=== PATIENT | male | born 1960 | race Caucasian/White ===

== ENCOUNTER 2016-05-20 17:51 | Inpatient (IN) | payer BC, OTHER ==
[~2016-05-20] VITALS: Ht 182.9 cm; Wt 83.9 kg
--- NOTE | ~2016-05-20 | D ---
[facility] [place] [address] DISCHARGE SUMMARY Name: CAMELIA BATES Room #: 454-P [facility] IN M.R.#: [id number] Admission: 05/20/16 Attend Phys: Marietta Marshall MD Discharge: 05/21/16 Date of : 58 Report #: [id number] THIS REPORT FOR: //name// CC: Marietta Adler DATE OF SERVICE: 05/21/2016 TYPE OF DICTATION: Discharge summary. After slqr-gp-leau encounter, I did see the patient and examined him on the day of discharge. DISCHARGE DIAGNOSES: 1. Atypical chest pain. 2. Dizziness. 3. Ascending aortic aneurysm major 4.1. 4. Persistent cough. 5. Hypertension. 6. Hyperlipidemia. 7. Borderline diabetes mellitus. 8. Tobacco abuse. DISCHARGE MEDICATIONS: See discharge summary. HOSPITAL COURSE: The patient was admitted to the hospital secondary to atypical chest pain and dizziness. The patient presented to have syncope actually. The patient was admitted to CCU and he was on the tele. Tele was negative. Serial troponin was negative. The patient's fasting lipid profile did show LDL of 112, so advised to take 10 mg of Crestor. His echocardiogram was negative and carotid ultrasound was negative. CT head was negative. CT angio of the chest was negative for PE. The patient was seen by cardiology also and they recommended him to be seen as an outpatient in 2-4 weeks and do a stress test as an outpatient with Dr. Dorsey. The patient is stable and he is going home to follow with his primary care doctor for any other medical issues. <ELECTRONICALLY SIGNED> By: Marietta Marshall MD 05/21/16 1828 1424 1748 Marietta Marshall MD /nt
--- NOTE | ~2016-05-20 | EKG ---
[address] [address] ELECTROCARDIOGRAM REPORT Name: JANACAMELIA Room #: 454-P ADM IN M.R.#: [id number] Admission: 05/20/16 Attend Phys: Marietta Marshall MD Discharge: Date of : 58 Report #: [id number] THIS REPORT FOR: //name// [facility] ED Test Date: 2016-05-20 Test Time: 17:52:45 Pat Name: CAMELIA ABTES Department: Room: [facility] Gender: M [employer] Calculator: TITO : 1960 Requested By: William aSha Order Number: [id number] MD: Da Williamson Measurements Intervals [place] Rate: 71 P: 58 [place]: 221 QRS: 28 QRSD: 94 T: 79 QT: 373 QTc: 406 Interpretive Statements Sinus rhythm Prolonged [place] interval No previous ECG available for comparison Electronically Signed On 05-21-2016 9:29:01 SPEECH LANGUAGE PATHOLOGIST by Da Williamson [email or web address] <ELECTRONICALLY SIGNED> By: Da Williamson MD, [facility] 05/21/16 0929 1752 1752 Da Williamson MD, FACC /EPI
--- NOTE | ~2016-05-20 | 2DMMODE ---
[facility] [place] [address] 2 D/M-MODE ECHOCARDIOGRAM Name: CAMELIA BATES Room #: 454-P [facility] IN .R.#: [id number] Admission: 05/20/16 Attend Phys: Marietta Marshall, Discharge: Date of : 58 Date of Service: 05/21/16 0913 Report #: [id number] THIS REPORT FOR: //name// Transthoracic Echocardiography Ordering physician: Laquita Troncoso Referring physician: Ashish Adler Theresa L. Food Service Team Member: Marie Salazar Indications/History: Chest pain, Dizzy. Hx: HTN, Tobacco abuse. BP: 134 / HR: 63bpm Height: 72in Weight: 185.6lb 54 Study data: M-mode, complete 2D, complete spectral Doppler, and color Doppler. Location: Echo laboratory. Routine. Image quality was adequate. 2D measurements Normal Normal LVID ED 56.6mm 36-57 IVS ED 10.6mm 6-11 LVID ES 36.9mm 23-40 LVPW ED 9.9mm 6-11 LA volume 30ml/m2 16-28 AoRoot diam 43.1mm 21-37 index ED LVOT diameter 22mm 18-23 Findings: Left ventricle: The cavity size was normal. Wall thickness was normal. Systolic function was normal. The estimated ejection fraction was in the range of 60%. Wall motion was normal. Right ventricle: The cavity size was normal. Systolic function was normal. Right atrium: The atrium was normal in size. Left atrium: The atrium was normal in size. Volume index: 30ml/m2 (S). Aortic valve: Structurally normal valve. Doppler: There was no stenosis. No regurgitation. [facility] [address] [place] [address] 2 D/M-MODE ECHOCARDIOGRAM Name: CAMELIA BATES Room #: 454-P [facility] IN M.R.#: [id number] Admission: 05/20/16 Attend Phys: Marietta Marshall, Discharge: Date of : 58 Date of Service: 05/21/16 0913 Report #: [id number] velocity: 165.4cm/s (S). Peak gradient: 10.9mm Hg (S). Mitral valve: Structurally normal valve. Doppler: There was no evidence for stenosis. No regurgitation. Peak E-wave velocity: 81.1cm/s. Peak gradient: 2.6mm Hg (D). Peak A-wave velocity: 97.2cm/s. Tricuspid valve: Structurally normal valve. Doppler: There was no evidence for stenosis. Trivial regurgitation. Regurgitant peak velocity: 217cm/s. Peak RV-RA gradient: 19mm Hg (S). Pulmonic valve: Structurally normal valve. Doppler: There was no evidence for stenosis. Trivial regurgitation. Pericardium: There was no pericardial effusion. Aorta: Aortic root: The aortic root was normal in size. Ascending aorta mildly dilated at 4.2cm. Pulmonary artery: Systolic pressure was estimated to be 24mm Hg. Diastolic function: Doppler parameters are consistent with abnormal left ventricular relaxation (grade 1 diastolic dysfunction). Systemic veins: Inferior vena cava: The vessel was normal in size; the respirophasic diameter changes were in the normal range (= 50%). Conclusions 1. Left ventricle: Systolic function was normal. The estimated ejection fraction was in the range of 60%. Wall motion was normal. Doppler parameters are consistent with abnormal left ventricular relaxation (grade 1 diastolic dysfunction). 2. Aortic valve: Structurally normal valve. There was no stenosis. No regurgitation. 3. Mitral valve: Structurally normal valve. No regurgitation. 4. Aortic root: The aortic root was normal in size. Ascending aorta mildly dilated at 4.2cm. 5. Pulmonary arteries: Systolic pressure was estimated to be 24mm Hg. [facility] [address] [place] [address] 2 D/M-MODE ECHOCARDIOGRAM Name: JANA,CAMELIA Room #: 454-P [facility] IN [facility].#: [id number] Admission: 05/20/16 Attend Phys: Marietta Marshall, Discharge: Date of : 58 Date of Service: 05/21/16912 Report #: [id number] 6. Pericardium, extracardiac: There was no pericardial effusion. <ELECTRONICALLY SIGNED> By: Da Williamson MD, FACC 05/21/164 2 13 Da Williamson MD, [facility] /thea
[2016-05-20 17:53] VITALS: BP 151/82
[2016-05-20] MEDS ORDERED: HYDROCHLOROTHIA25 M2 PO (18:13)
[2016-05-20] MEDS ORDERED: BENAZEPRIL HCL20 MG PO (18:14)
[2016-05-20] MEDS ORDERED: CRESTOR5 MG PO (18:14)
[2016-05-20 19:27] LABS: ABSOLUTE NEUTROPHILS 3.8 thou/uL (1.4-8.2); BASOPHILS 1.1 % (0.0-2.0); EOSINOPHILS 4.3 % (0.0-3.0); HEMATOCRIT 32.1 % (42.0-52.0); HEMOGLOBIN 10.7 gm/dL (14.0-18.0); LYMPHOCYTES 26.5 % (24.0-44.0); MCH 28.6 pg (26.0-34.0); MCHC 33.4 % (28.0-37.0); MCV 85.5 fL (80.0-100.0); MONOCYTES 6.9 % (1.0-8.0); PLATELET COUNT 299 thou/uL (150-400); POLYS 61.2 % (36.0-66.0); RBC 3.75 mil/uL (4.50-6.00); RDW 14.4 % (10.5-14.5); WBC 6.2 thou/uL (4.0-11.0)
[2016-05-20 19:28] LABS: MANUAL DIFF NO
[2016-05-20 19:35] LABS: ANION GAP 8 mmol/L (7-16); BUN 13 mg/dL (7-18); CHLORIDE 104 mmol/L (98-107); CO2 28 mmol/L (21-32); CREATININE 0.8 mg/dL (0.6-1.3); GLUCOSE 103 mg/dL (70-99); POTASSIUM 3.7 mmol/L (3.5-5.1); SODIUM 140 mmol/L (136-145)
[2016-05-20 19:48] LABS: ALBUMIN 3.8 g/dL (3.4-5.0); ALKALINE PHOSPHATASE 72 U/L (46-116); MAGNESIUM 1.9 mg/dL (1.8-2.4); NT-PRO BRAIN NAT PEPTIDE 239 pg/mL (<300); SGOT 7 U/L (15-37); SGPT 32 U/L (30-65); TOTAL BILIRUBIN 0.2 mg/dL (<0.1-1.0); TOTAL PROTEIN 6.7 g/dL (6.4-8.2); TROPONIN-I < 0.04 ng/mL (<0.04-0.07)
[2016-05-20 21:10] VITALS: BP 123/80
[2016-05-20] MEDS ORDERED: AMLODIPINE BESY10 MG PO (23:41)
[2016-05-21 02:55] LABS: CHOLESTEROL 158 mg/dL (<200); HDL CHOLESTEROL 35 mg/dL (>40); LDL CHOLESTEROL 112 mg/dL (<100); TC:HDL 4.5 Ratio (Not establshd); TRIGLYCERIDE 55 mg/dL (<150); VLDL 11 mg/dL (<40)
[2016-05-21 03:01] LABS: SERUM ASSESSMENT Clear
[2016-05-21 03:50] VITALS: BP 99/69
[2016-05-21 07:36] VITALS: BP 134/54
[2016-05-21 11:18] VITALS: BP 122/65
[2016-05-21 11:23] VITALS: BP 132/73
[2016-05-21 11:27] VITALS: BP 131/73
[2016-05-21] MEDS ORDERED: COZAAR 50 MG TA50 M1 PO (14:27)
[2016-05-21] MEDS ORDERED: ASPIRIN325 PO (14:27)
[2016-05-21] MEDS ORDERED: AUGMENTIN 875875 MG PO (14:27)
[2016-05-21 15:13] VITALS: BP 131/73
[2016-05-21 16:11] LABS: TSH 0.983 uIU/mL (0.450-4.500)
[2016-05-21 21:09] LABS: GLYCOHEMOGLOBIN (HGB A1C) 4.9 % (4.8-5.6)
== END 2016-05-21 16:20 | disposition home or self-care (01) | DRG 312 ==
LOC: ER 17:51 → EROBS 20:24 → 4W 20:24
PROVIDERS: Emergency Medicine; Nurse Practitioner
DX: R55 Syncope and collapse (principal); N39.0 Urinary tract infection, site not specified; J44.1 Chronic obstructive pulmonary disease with (acute) exacerbation; R07.89 Other chest pain; R42 Dizziness and giddiness; F17.210 Nicotine dependence, cigarettes, uncomplicated; I10 Essential (primary) hypertension; E78.5 Hyperlipidemia, unspecified; R73.03 Prediabetes; R05 Cough; I71.2 Thoracic aortic aneurysm, without rupture; Z23 Encounter for immunization; Z90.49 Acquired absence of other specified parts of digestive tract; Z71.6 Tobacco abuse counseling; Z82.49 Family history of ischemic heart disease and other diseases of the circulatory system
CPT/HCPCS: 10045

== ENCOUNTER → 2016-07-26 | Outpatient (CLI) | payer BC, OTHER ==
[~2016-07-26] VITALS: Ht 182.9 cm; Wt 88.5 kg
[~2016-07-26] MED LIST: AMLODIPINE BESY10 MG PO; ASPIRIN325 PO; AUGMENTIN 875875 MG PO; BENAZEPRIL HCL20 MG PO; COZAAR 50 MG TA50 M1 PO; COZAAR 50 MG TA50 M2 PO; CRESTOR5 MG PO; HYDROCHLOROTHIA25 M2 PO
--- NOTE | ~2016-07-26 | CATHLAB ---
[facility] [address] [email or web address] [place] [address] INVASIVE PROCEDURE REPORT Name: JANACAMELIA DMITRI Room #: REG CL [facility]#: [id number] Admission: 07/26/16 Attend Phys: Chandra Koo MD Discharge: Date of : 58 Date of Service: 07/26/16 1231 Report #: [id number] THIS REPORT FOR: //name// CC: Ashish Koo DATE OF SERVICE: 07/26/2016 INDICATION: Abnormal chest pain, abnormal stress test. Full risks, benefits and alternatives of cardiac catheterization were explained to the patient. All questions were answered. Informed consent was obtained. A Barbeau test was performed on the right radial artery. The right wrist area was prepped and draped in a sterile manner. Lidocaine was given subcutaneously. A 5-Wolof sheath was inserted into the right radial artery via modified Seldinger technique. Nitroglycerin and verapamil were injected through the sheath to prevent vasospasm. 5000 units of heparin were given through peripheral IV. CORONARY ANATOMY: 1. There is separate ostia for the LAD and left circumflex arteries. 2. The LAD is a moderate sized caliber vessel, travelling down the anterior wall and wrapping around the apex. There is only mild disease within the mid segment of the LAD, less than 20%. 3. The first diagonal artery is a small caliber vessel, with no flow-limiting lesions. 4. The second diagonal artery is a moderate size caliber vessel with mild disease at the ostium, 20%. 5. The left circumflex artery is a moderate to large size caliber vessel, codominant, supplying 2 obtuse marginal arteries. There is only mild disease within the mid segment of the left circumflex artery, less than 20%. 6. The RCA is a moderate size caliber vessel, supplying a PDA. There is mild disease in the mid segment of the RCA, 30%. There is also a mild stenosis in the distal segment, 30-40%. A left ventriculogram was performed revealing normal LV systolic function, ejection fraction of 60%. The LVEDP is approximately 12 mmHg. There is no gradient across the outflow tract. At the end of the procedure, the sheath was removed and a Vasc band was applied for hemostasis. IMPRESSION: 1. Mild, nonobstructive coronary artery disease. 2. Codominant system. [facility] [address] [place] [address] INVASIVE PROCEDURE REPORT Name: JANACAMELIA RIZVI Room #: REG CL [facility]#: [id number] Admission: 07/26/16 Attend Phys: Chandra Koo MD Discharge: Date of : 58 Date of Service: 07/26/16 1231 Report #: [id number] 3. Normal left ventricular systolic function. 4. Recommend medical therapy. <ELECTRONICALLY SIGNED> By: Chandra Koo MD 07/27/16 0902 1231 1841 Chandra Koo MD /carmencita
[2016-07-26 09:54] VITALS: BP 131/81
[2016-07-26 10:12] LABS: HEMATOCRIT 39.1 % (42.0-52.0); HEMOGLOBIN 12.9 gm/dL (14.0-18.0); MCH 26.4 pg (26.0-34.0); RBC 4.89 mil/uL (4.50-6.00); RDW 16.9 % (10.5-14.5); WBC 4.9 thou/uL (4.0-11.0)
[2016-07-26 10:32] LABS: CREATININE 0.8 mg/dL (0.7-1.3); POTASSIUM 3.9 mmol/L (3.5-5.1)
== END ==
LOC: CATH 08:58
PROVIDERS: Internal Medicine Cardiovascular Disease
DX: R94.39 Abnormal result of other cardiovascular function study (principal); I25.10 Atherosclerotic heart disease of native coronary artery without angina pectoris; E78.4 Other hyperlipidemia; Z87.891 Personal history of nicotine dependence; E11.9 Type 2 diabetes mellitus without complications; K21.9 Gastro-esophageal reflux disease without esophagitis; I10 Essential (primary) hypertension